=== PATIENT | male | born 1945 | race Caucasian/White ===

== ENCOUNTER 2021-05-16 11:31 | Outpatient (REF) | payer MEDICARE, MEDICAID, SELFPAY ==
[2021-05-16 13:44] LABS: Vitamin B12 311 pg/mL (200-900)
== END 2021-05-16 11:32 | disposition home or self-care (01) ==
LOC: HO.LAB 11:31
PROVIDERS: Visit Provider Psychiatry & Neurology Neurology
DX: G40.909 Epilepsy, unspecified, not intractable, without status epilepticus (principal)
CPT/HCPCS: 36415; 82607